=== PATIENT | female | born 1980 | race Caucasian/White ===

== ENCOUNTER 2022-09-02 07:34 | Inpatient (IN) | payer OTHER ==
[~2022-09-02] VITALS: Ht 160 cm; Wt 62.6 kg
[2022-09-02] MEDS ORDERED: PRENATABS RX T1 EACH PO (08:20)
== END 2022-09-03 13:45 | disposition home or self-care (01) | DRG 807 ==
LOC: LDR 07:34
PROVIDERS: ADMIT Specialist; ATTEND Specialist
PROC: 10E0XZZ Delivery of Products of Conception, External Approach (ICD-10-PCS; principal; 2022-09-02)
PROC: 3E033VJ Introduction of Other Hormone into Peripheral Vein, Percutaneous Approach (ICD-10-PCS; 2022-09-02)
PROC: 3E0DXGC Introduction of Other Therapeutic Substance into Mouth and Pharynx, External Approach (ICD-10-PCS; 2022-09-02)
PROC: BU4CZZZ Ultrasonography of Uterus and Ovaries (ICD-10-PCS; 2022-09-02)
PROC: BU4CZZZ Ultrasonography of Uterus and Ovaries (ICD-10-PCS; 2022-09-03)
DX: O02.1 Missed abortion (principal); Z37.1 Single stillbirth; Z3A.13 13 weeks gestation of pregnancy; Z20.822 Contact with and (suspected) exposure to COVID-19

== ENCOUNTER 2023-06-11 08:25 | Day surgery (SDC) | payer OTHER ==
[~2023-06-11 08:25] MED LIST: PRENATABS RX T1 EACH PO
== END 2023-06-11 14:30 | disposition home or self-care (01) ==
LOC: AMB-ENDOS 08:25
PROVIDERS: ATTEND Colon & Rectal Surgery
DX: K63.5 Polyp of colon (principal); K57.30 Diverticulosis of large intestine without perforation or abscess without bleeding; K64.8 Other hemorrhoids; R10.32 Left lower quadrant pain; K92.1 Melena; Z20.822 Contact with and (suspected) exposure to COVID-19